=== PATIENT | female | born 1955 | race Caucasian/White ===

== ENCOUNTER 2018-01-04 20:07 | Emergency (ER) | payer BC | END 2018-01-04 21:12 | disposition home or self-care (01) | LOC: SCSER 20:07 | DX: L84 Corns and callosities (principal) | CPT/HCPCS: 99283 ==

== ENCOUNTER 2018-01-30 13:39 | Outpatient (CLI) | payer BC | END 2018-01-30 13:40 | disposition home or self-care (01) | LOC: BICMAMMO 13:39 | PROVIDERS: ATTEND Family Medicine | DX: Z12.31 Encounter for screening mammogram for malignant neoplasm of breast (principal) | CPT/HCPCS: 77063; 77067 ==

== ENCOUNTER 2020-12-04 12:01 | Outpatient (CLI) | payer BC | END 2020-12-04 12:02 | disposition home or self-care (01) | LOC: BICMAMMO 12:01 | PROVIDERS: ATTEND Family Medicine | DX: Z12.31 Encounter for screening mammogram for malignant neoplasm of breast (principal) | CPT/HCPCS: 77063; 77067 ==

== ENCOUNTER 2022-02-01 13:15 | Outpatient (CLI) | payer BC | END 2022-02-01 13:16 | disposition home or self-care (01) | LOC: BICMAMMO 13:15 | PROVIDERS: ATTEND Family Medicine | DX: Z12.31 Encounter for screening mammogram for malignant neoplasm of breast (principal) | CPT/HCPCS: 77063; 77067 ==